=== PATIENT | male | born 1965 | race Caucasian/White ===

== ENCOUNTER 2019-04-08 18:45 | Emergency (ER) ==
[2019-04-08 18:53] VITALS: TEMP 98.3; BMI 40.1
[2019-04-08] MEDS ORDERED: VASOTEC IV IVP STA ×2 (19:04→21:10)
[2019-04-08] MEDS ORDERED: TRANDATE IVP STA ×2 (19:04→21:10)
--- NOTE | 2019-04-08 20:54 | CT ---
EXAM: CT brain without contrast HISTORY: Hypertension TECHNIQUE: CT of the brain without intravenous contrast FINDINGS: There is no acute hemorrhage midline shift or mass effect. No hydrocephalus or abnormal e xtra-axial fluid collection. No significant parenchymal attenuation abnormality. The bony cranium a ppears normal. The visualized paranasal sinuses are clear. Soft tissues without significant abnormal ity. IMPRESSION: 1. CT of the brain within normal limits.
--- NOTE | 2019-04-08 21:01 | CT ---
EXAM: CT chest without contrast HISTORY: Dyspnea TECHNIQUE: Multi-slice transaxial helical. Coronal and sagital reformations were performed. COMPARISON: None FINDINGS: The heart is normal in size. Mild calcified plaques are present within the thoracic aorta. My enlar ged right paratracheal lymph node is seen measuring up to 11 mm in short axis. Subcarinal lymph node measures up to 10 mm in short axis. Evaluation of the hilar regions is limited without IV contrast. The visualized thyroid appears grossly unremarkable. The piriform sinus region of the aerodigestive tract appears irregular in shape. Mildly enlarged right axillary lymph node measures up to 1.4 cm in short axis. Bilateral gynecomastia is seen. The liver is diffusely low attenuation when compared t o the spleen. Pancreas appears mildly atrophic. Small multilevel thoracic endplate osteophytes are seen. Minimal dependent atelectasis is seen within the dependent lung zones. 6 mm right upper lobe noncalc ified pulmonary nodule is seen on axial image 21. No focal airspace opacity or pleural effusion is s een. IMPRESSION: 1. No acute cardiopulmonary findings. 2. Mildly enlarged mediastinal lymph nodes which are nonspecific. 3. Nonspecific mildly enlarged right axillary lymph node. 4. Asymmetry at the piriform sinus region. This is nonspecific and infection or malignancy cannot be excluded. Recommend non-emergent CT of the soft tissue neck with IV contrast for further evaluati on. Unexpected finding. 5. Diffuse hepatic steatosis. 6. 6 mm right upper lobe noncalcified pulmonary nodule. Recommend follow-up CT chest in six - 12 mo nths per Fleischner Society guidelines. 7. Other incidental findings as detailed above.
--- NOTE | 2019-04-08 21:14 | ED.PDOC ---
General ED Provider: Dr. MARK HARTMAN-ER Chief Complaint: Hypertension Stated Complaint: my bp is up and my head hurts Time Seen by Physician: 19:00 Mode of Arrival: Walk-In Information Source: Patient Exam Limitations: No limitations Nursing and Triage Documentation Reviewed and Agree: Yes Does patient meet sepsis criteria?: No System Inflammatory Response Syndrome: Not Applicable Sepsis Protocol: For patient's 13 years and over: Temp is 96.8 and below OR 101 and greater Pulse >90 BPM Resp >20/minute Acutely Altered Mental Status Are patient's symptoms suggestive of a new infection, such as: -Pneumonia -Skin, Soft Tissue -Endocarditis -UTI -Bone, Joint Infection -Implantable Device -Acute Abdominal Infection -Wound Infection -Meningitis -Blood Stream Catheter Infection -Unknown Cardiovascular Complaint Exam - Hypertension Complaint/Exam Onset/Duration: today Symptoms Are: Still present Timing: Constant Reported B/P Prior to Arrival: 220/120 Aggravating: Reports: None Alleviating: Reports: None Associated Signs and Symptoms: Reports: Vision changes, Anxiety, Headache. Denies: Chest pain Recent Change in Medications: No A/V Nicking: No Papilledema Present: No JVD Present: No Carotid Bruit Present: No Femoral Pulses Bounding: Yes Differential Diagnoses: Hypertension Quality Indicator For Non-Traumatic Chest Pain/Syncope: EKG Performed Review of Systems - Review Of Systems Constitutional: Reports: No symptoms Eyes: Reports: No symptoms Ears, Nose, Mouth, Throat: Reports: No symptoms Respiratory: Reports: No symptoms Cardiac: Reports: No symptoms GI: Reports: No symptoms : Reports: No symptoms Musculoskeletal: Reports: No symptoms Skin: Reports: No symptoms Neurological: Reports: Headache Endocrine: Reports: No symptoms Hematologic/Lymphatic: Reports: No symptoms All Other Systems: Reviewed and Negative Past Medical History - Past Medical History Previously Healthy: Yes Endocrine: Reports: None Cardiovascular: Reports: None Respiratory: Reports: None Hematological: Reports: None Gastrointestinal: Reports: None Genitourinary: Reports: None Neuro/Psych: Reports: None Musculoskeletal: Reports: Unknown Cancer: Reports: None - Surgical History General Surgical History: Reports: Orthopedic - Family History Family History: Reports: Unknown - Social History Smoking Status: Current every day smoker, Light tobacco smoker Hx Substance Use: No Alcohol Screening: None - Immunizations Tetanus Shot up to Date: Yes Physical Exam - Physical Exam Appearance: Well-appearing, No pain distress, Well-nourished Eyes: ILANA ENT: Ears normal, Nose normal, Oropharynx normal Neck: Supple Respiratory: Airway patent, Breath sounds clear, Breath sounds equal, Respirations nonlabored Cardiovascular: RRR, Pulses normal, No rub, No murmur GI/: Soft, Nontender, No masses, Bowel sounds normal, No Organomegaly Musculoskeletal: Normal strength, ROM intact, No edema, No calf tenderness Skin: Warm, Dry, Normal color Neurological: Sensation intact, Motor intact, Reflexes intact, Cranial nerves intact, Alert, Oriented Psychiatric: Affect appropriate, Mood appropriate Interpretation - Radiology Interpretation Radiology Interpretation By: Radiologist Radiology Results: Positive Exam Interpreted: CT Scan - EKG Interpretation Time of EKG #1: 21:14 Rate: Normal Rhythm: Sinus Ectopy: None Valentine: NL ST Segment: Normal Re-Evaluation - Re-Evaluation Time of Re-Evaluation: 21:14 Status: Improved Vital Signs Stable: Yes Pain Level: 0 Appearance: NAD Lungs: Clear Skin: Warm and Dry Neuro: Alert and Oriented X3 CV: RRR Critical Care Note - Critical Care Note Total Time (mins): 0 Course - Course Hematology/Chemistry: 04/08/19 19:25 04/08/19 19:25 Orders, Labs, Meds: Lab Review 04/08/19 04/08/19 04/08/19 19:10 19:25 19:25 WBC 9.24 RBC 4.23 L Hgb 12.6 L Hct 38.6 L MCV 91.3 MCH 29.8 MCHC 32.6 RDW Coeff of Alyssa 12.9 Plt Count 185 Immature Gran % (Auto) 0.4 Neut % (Auto) 75.8 Lymph % (Auto) 17.4 Cuming % (Auto) 4.9 Eos % (Auto) 1.0 Baso % (Auto) 0.5 Immature Gran # (Auto) 0.0 Neut # (Auto) 7.0 H Lymph # (Auto) 1.6 Cuming # (Auto) 0.5 Eos # (Auto) 0.1 Baso # (Auto) 0.1 Puncture Site Rrad O2 Saturation 95.0 ABG pH 7.479 H ABG pCO2 37.1 ABG pO2 69.0 L ABG HCO3 27.6 H ABG Total CO2 29 H ABG Base Excess 4 H Martin Test + FiO2 % 21.0 Sodium 139.4 Potassium 3.82 Chloride 102.5 Carbon Dioxide 28.3 Anion Gap 12.42 BUN 9.0 Creatinine 0.72 Estimated GFR (MDRD) 113.00 BUN/Creatinine Ratio 12.50 Glucose 118.3 H Calcium 9.13 Total Bilirubin 0.83 AST 41.4 ALT 27.6 Alkaline Phosphatase 118.9 Total Creatine Kinase 170.8 H CK-MB (CK-2) 1.620 CK-MB (CK-2) % 0.9400 Troponin I < 0.012 Total Protein 8.31 H Albumin 4.35 Globulin 3.96 Albumin/Globulin Ratio 1.09 TSH 2.060 Free T4 Urine Color Urine Clarity Urine pH Ur Specific [place] Urine Protein Urine Glucose (UA) Urine Ketones Urine Blood Urine Nitrite Urine Bilirubin Urine Urobilinogen Ur Leukocyte Esterase Urine Microscopic RBC Ur Squamous Epith Cells Urine Mucus Urine Opiates Screen Ur Oxycodone Screen Urine Methadone Screen Ur Propoxyphene Screen Ur Barbiturates Screen U Tricyclic Antidepress Ur Phencyclidine Scrn Ur Amphetamine Screen U Methamphetamines Scrn U Benzodiazepines Scrn Urine Cocaine Screen U Cannabinoids Screen 04/08/19 04/08/19 04/08/19 19:25 20:43 20:43 WBC RBC Hgb Hct MCV MCH MCHC RDW Coeff of Alyssa Plt Count Immature Gran % (Auto) Neut % (Auto) Lymph % (Auto) [place]uming % (Auto) Eos % (Auto) Baso % (Auto) Immature Gran # (Auto) Neut # (Auto) Lymph # (Auto) Cuming # (Auto) Eos # (Auto) Baso # (Auto) Puncture Site O2 Saturation ABG pH ABG pCO2 ABG pO2 ABG HCO3 ABG Total CO2 ABG Base Excess Martin Test FiO2 % Sodium Potassium Chloride Carbon Dioxide Anion Gap BUN Creatinine Estimated GFR (MDRD) BUN/Creatinine Ratio Glucose Calcium Total Bilirubin AST ALT Alkaline Phosphatase Total Creatine Kinase CK-MB (CK-2) CK-MB (CK-2) % Troponin I Total Protein Albumin Globulin Albumin/Globulin Ratio TSH Free T4 1.33 Urine Color Yellow Urine Clarity Clear Urine pH 5.5 Ur Specific [place] >=1.030 Urine Protein Negative Urine Glucose (UA) Negative Urine Ketones Negative Urine Blood Trace-intact Urine Nitrite Negative Urine Bilirubin Negative Urine Urobilinogen 1.0 Ur Leukocyte Esterase Negative Urine Microscopic RBC 2-5 Ur Squamous Epith Cells 5-10 Urine Mucus 1+ Urine Opiates Screen Negative Ur Oxycodone Screen Negative Urine Methadone Screen Positive Ur Propoxyphene Screen Negative Ur Barbiturates Screen Negative U Tricyclic Antidepress Negative Ur Phencyclidine Scrn Negative Ur Amphetamine Screen Negative U Methamphetamines Scrn Negative U Benzodiazepines Scrn Negative Urine Cocaine Screen Negative U Cannabinoids Screen Negative Orders Category Date Time Status ABG DRAW REQUEST Stat CARDIO 04/08/19 19:10 Completed EKG-(ED ONLY) Stat CARDIO 04/08/19 19:03 Completed ED IV/MEDIPORT/POWERPORT .ONCE EMERGENCY 04/08/19 19:03 Active ARTERIAL BLOOD GAS [ABG] Stat LAB 04/08/19 19:10 Completed CBC W/ AUTO DIFF Stat LAB 04/08/19 19:25 Completed COMPREHENSIVE METABOLIC PANEL Stat LAB 04/08/19 19:25 Completed CREATINE KINASE Stat LAB 04/08/19 19:25 Completed FREE T4 (FREE THYROXINE) Stat LAB 04/08/19 19:25 Completed THYROID STIMULATING HORMONE Stat LAB 04/08/19 19:25 Completed TROPONIN I Stat LAB 04/08/19 19:25 Completed URINALYSIS C & S IF INDICATED Stat LAB 04/08/19 20:43 Completed URINE DRUG SCREEN (RAPID FOR ED) [DRUG SCREEN, URINE, LAB 04/08/19 20:43 Completed RAPID] Stat 0.9 % Sodium Chloride [Saline Flush] MEDS 04/08/19 19:03 Active 1 syr IVF PRN PRN Enalaprilat Dihydrate [Vasotec IV] MEDS 04/08/19 19:04 Discontinued 1.25 mg IVP ONCE STA Enalaprilat Dihydrate [Vasotec IV] MEDS 04/08/19 21:10 Discontinued 1.25 mg IVP ONCE STA Labetalol HCl [Trandate] MEDS 04/08/19 19:04 Discontinued 20 mg IVP ONCE STA Labetalol HCl [Trandate] MEDS 04/08/19 21:10 Discontinued [address]P ONCE STA [address] CHEST W/O CONTRAST Stat RADS 04/08/19 19:[address] HEAD W/O CONTRAST Stat RADS 04/08/19 19:05 Completed Medications Generic Name Dose Route Start Last Admin Trade Name Freq PRN Reason Stop Dose Admin Sodium Chloride 1 syr 04/08/19 19:03 04/08/19 19:37 Saline Flush IVF 1 syr PRN PRN Administration To flush IV Discontinued Medications Generic Name Dose Route Start Last Admin Trade Name Bryanna PRN Reason Stop Dose Admin Enalaprilat 1.25 mg 04/08/19 19:04 04/08/19 19:35 Vasotec Iv IVP 04/08/19 19:05 1.25 mg ONCE STA Administration Enalaprilat 1.25 mg 04/08/19 21:10 Vasotec Iv IVP 04/08/19 21:11 ONCE STA Labetalol HCl 20 mg 04/08/19 19:04 04/08/19 19:33 Trandate IVP 04/08/19 19:05 20 mg ONCE STA Administration Labetalol HCl 20 mg 04/08/19 21:10 Trandate IVP 04/08/19 21:11 ONCE STA Vital Signs: Temp Pulse Resp BP Pulse Ox 04/08/19 21:01 82 21 141/100 H 97 04/08/19 20:47 163/76 H 04/08/19 20:01 125/87 04/08/19 19:28 84 19 179/90 H 97 04/08/19 18:47 98.3 F 98 H 24 207/110 H 96 CARLA Risk Score CARLA Risk Score: Risk Score Odds of by 30D 0 0.1 (0.1-0.2) 1 0.3 (0.2-0.3) 2 0.4 (0.3-0.5) 3 0.7 (0.6-0.9) 4 1.2 (1.0-1.5) 5 2.2 (1.9-2.6) 6 3.0 (2.5-3.6) 7 4.8 (3.8-6.1) Departure - Departure Time of Disposition: 21:15 Disposition: HOME SELF-CARE Discharge Problem: Hypertensive urgency Instructions: Hypertensive Crisis (ED) Condition: Good Pt referred to PMD for follow-up: Yes IPMP verified?: No Additional Instructions: talk to your pcp about abnormal xray of the chest ---monitor your bp--- Allergies/Adverse Reactions: Allergies No Known Allergies Allergy (Verified 04/08/19 18:56) Home Medications: Ambulatory Orders Lisinopril/Hydrochlorothiazide [Zestoretic 10-12.5 mg Tablet] 1 each PO DAILY # 30 tablet 04/08/19 Methadone HCl 150 mg PO DAILY 04/08/19 Metoprolol Succinate [Toprol Xl] 25 mg PO DAILY #30 tab.er.24h 04/08/19 Disposition Discussed With: Patient, Family
[2019-04-08 21:23] VITALS: BP 137/70
== END 2019-04-08 21:36 | disposition home or self-care (01) ==
LOC: ED 18:45
DX: I16.0 Hypertensive urgency (principal); R51 Headache; F17.210 Nicotine dependence, cigarettes, uncomplicated
CPT/HCPCS: 36415; 80053; 80306; 81001; 82550; 82553; 82803; 84439; 84443; 84484; 85025; 93005; 93010; 96374; 96375; 96376; 99283